=== PATIENT | male | born 1965 | race Caucasian/White ===

== ENCOUNTER 2024-05-27 12:41 | Outpatient (CLI) | payer OTHER, SELFPAY ==
--- NOTE | ~2024-05-27 | CT_ITS ---
EXAMINATION:CT lung screening DATE: 05/27/2024 13:02 INDICATION: Personal history of nicotine dependence. Current smoker with 35 pack year history. TECHNIQUE: Computed tomography (CT) of the chest was performed without intravenous contrast. Automate d exposure control and iterative reconstruction technique were employed. The dose-length product (DLP ) was 322.05 mGy-cm. COMPARISON: None. FINDINGS: There is mild emphysema. There is mild peripheral scarring in left upper lobe. No pleural e ffusion. The heart size is normal. There are coronary artery calcifications. No pericardial effusion. There is mild bilateral gynecomastia. There is a gallstone in the gallbladder, which is normal in si ze. There is mild thoracic spondylosis. Thoracic dextroscoliosis is noted. IMPRESSION: 1. Lung-RADS category 2: Benign appearance or behavior. Continue annual screening with noncontrast lo w-dose chest CT in 12 months. Reviewed, dictated and finalized at location A. IMPRESSION: 1. Lung-RADS category 2: Benign appearance or behavior. Continue annual screeni ng with noncontrast low-dose chest CT in 12 months.
== END 2024-05-27 12:42 | disposition home or self-care (01) ==
DX: Z12.2 Encounter for screening for malignant neoplasm of respiratory organs (principal); Z87.891 Personal history of nicotine dependence
CPT/HCPCS: 71271